=== PATIENT | female | born 1940 | race Caucasian/White ===

== ENCOUNTER 2020-05-11 19:19 | Inpatient (IN) | payer OTHER ==
[~2020-05-11] VITALS: Ht 152.4 cm; Wt 4.5 kg
[2020-05-11] MEDS ORDERED: CLONAZEPAM0.5 MG (20:06)
[2020-05-11] MEDS ORDERED: JANUMET 50-5001 EACH (20:06)
[2020-05-11] MEDS ORDERED: GLIPIZIDE XL10 MG (20:07)
[2020-05-11] MEDS ORDERED: EXELON (20:07)
[2020-05-11] MEDS ORDERED: AVAPRO150 MG (20:08)
[2020-05-11] MEDS ORDERED: ZOLOFT50 MG (20:08)
[2020-05-11] MEDS ORDERED: NAMENDA10 MG (20:08)
[2020-05-11] MEDS ORDERED: SIMVASTATIN20 MG (20:09)
[2020-05-11] MEDS ORDERED: ACID REDUCER20 M1 (20:09)
--- NOTE | 2020-05-11 20:10 | NUR ---
PTE SE RECIBE POR ULCERA EN EL GLUTEO DERECHO Y AZUCAR ERIN REFIERE PARAMEDICO Y FAMILIAR.
--- NOTE | 2020-05-11 21:36 | NUR ---
PTE CON DX DE BETO,EN COMPANIA DE FAMILIAR A QUIEN SE LE ORIENTA SOBRE TX MEDICO EL CUAL REFIERE ENTENDER.SE LE EXTRAEN MUESTRAS BAJO MEDIDAS ASEPTICAS,CANALIZACION PATENTE Y DAY DE EDEMA EN MANO RT POR PARAMEDICOS,SE ADMINISTRAN MEDICAMENTOS JANINE ORDEN MEDICA.SE ORIENTA FAMILIAR SOBRE INSERCION DE BLISS Y REFIERE ENTENDER.
--- NOTE | 2020-05-12 08:33 | NUR ---
SE RECIBE PACIENTE ALERTA EN COMPANIA DE FAMILIAR, EN ALEX BARANDAS ELEVADAS VENOPUNCION PATENTE,DAY DE EDEMA Y ENROJECIMIENTO. SIGNOS VITALES TOMADOS, REPORTADOS ESTABLES AL MOMENTO. SE MANTIENE BAJO OBSERVACION POR CAMBIOS.
[2020-05-15] MEDS ORDERED: RIVASTIGMINE1.5 MG (10:48)
[2020-05-15] MEDS ORDERED: EMERGEN-C 1,01000 MG (10:49)
[2020-05-15] MEDS ORDERED: IBUPROFEN200 MG (10:49)
[2020-05-15] MEDS ORDERED: CALTRATE 600 +1 EACH (10:49)
[2020-05-15] MEDS ORDERED: ANTACID EXTRA300 MG (10:49)
[2020-05-23] MEDS ORDERED: MORGIDOX100 MG PO (12:51)
[2020-05-23] MEDS ORDERED: INTESTINEX680 M1 PO (12:52)
[2020-05-23] MEDS ORDERED: POLY119PG PO (12:58)
[2020-05-23] MEDS ORDERED: MUPIROCIN22 GM NASAL (12:59)
[2020-05-23] MEDS ORDERED: HIBICLENS118 ML TOP (13:00)
[2020-05-23] MEDS ORDERED: CLOTRIMAZOLE 321 GM VAG (13:42)
[2020-05-23] MEDS ORDERED: OMEPRAZOLE20 MG PO (13:44)
== END 2020-05-23 22:30 | disposition home or self-care (01) | DRG 593 ==
LOC: ER 19:19 → SEC-K 05-12 11:27 → MEDI 05-12 11:27 → SEC-K 05-12 14:12 → MEDI 05-12 14:32 → MEDJ 05-12 14:32 → MEDI 05-12 18:33
PROVIDERS: ADMIT Internal Medicine; ATTEND Internal Medicine
PROC: BW21ZZZ Computerized Tomography (CT Scan) of Abdomen and Pelvis (ICD-10-PCS; principal; 2020-05-12)
PROC: 8E0ZXY6 Isolation (ICD-10-PCS; 2020-05-12)
DX: L89.313 Pressure ulcer of right buttock, stage 3 (principal); L02.31 Cutaneous abscess of buttock; N39.0 Urinary tract infection, site not specified; M86.8X8 Other osteomyelitis, other site; F02.81 Dementia in other diseases classified elsewhere, unspecified severity, with behavioral disturbance; Z74.01 Bed confinement status; B96.89 Other specified bacterial agents as the cause of diseases classified elsewhere; B95.2 Enterococcus as the cause of diseases classified elsewhere; B96.4 Proteus (mirabilis) (morganii) as the cause of diseases classified elsewhere; B95.62 Methicillin resistant Staphylococcus aureus infection as the cause of diseases classified elsewhere; B96.29 Other Escherichia coli [E. coli] as the cause of diseases classified elsewhere; Z20.828 Contact with and (suspected) exposure to other viral communicable diseases; G30.8 Other Alzheimer's disease

== ENCOUNTER 2020-12-20 18:44 | Inpatient (IN) | payer OTHER ==
[~2020-12-20] VITALS: Ht 149.9 cm; Wt 59.0 kg
[~2020-12-20 18:44] MED LIST: ACID REDUCER20 M1; ANTACID EXTRA300 MG; AVAPRO150 MG; CALTRATE 600 +1 EACH; CLONAZEPAM0.5 MG; CLOTRIMAZOLE 321 GM VAG; EMERGEN-C 1,01000 MG; EXELON; GLIPIZIDE XL10 MG; HIBICLENS118 ML TOP; IBUPROFEN200 MG; INTESTINEX680 M1 PO; JANUMET 50-5001 EACH; MORGIDOX100 MG PO; MUPIROCIN22 GM NASAL; NAMENDA10 MG; OMEPRAZOLE20 MG PO; POLY119PG PO; RIVASTIGMINE1.5 MG; SIMVASTATIN20 MG; ZOLOFT50 MG
--- NOTE | 2020-12-20 19:03 | NUR ---
SE RECIBE PTE ALERTA QUE RESPONDE SOLO A ESTIMULOS DE DOLOR,PTE CON ALZHEIMER. PTE ACOMPANADA DE M[place]AU[place] HIJA LA MISMA REFIERE QUE LA PTE PRESENTA ULCERA SACRAL Y RAMOS ISATU DE COMER DESDE HACEN 2 BARRON.
--- NOTE | 2020-12-20 20:46 | NUR ---
TX. OFRECIDO POR MIS. CERVANTES QUIEN ORIENTA AL PACIENTE SOBRE EL TX. EXTRAE MUESTRAS DE GEGE BAJO MEDIDAS ASEPTICAS SE CANALIZA ADMINISTRA MEDICAMENTOS JANINE ORDEN MEDICA.
--- NOTE | 2020-12-20 23:15 | NUR ---
PTE ESTABLE ACOMPANADA SE FAMILIAR SE EDUCA FAMILIAR SOBRE EL SEGUIMIENTO QUE SE LE REALIZARA EN EL HOSPITAL Y ESTA REFIERE ENTENDER.PTE CON RUTHY.
== END 2021-01-02 18:07 | disposition home health service (06) | DRG 571 ==
LOC: ER 18:44 → SEC-K 12-21 07:01 → MEDJ 12-21 07:01
PROVIDERS: Surgery; ADMIT Internal Medicine; ATTEND Internal Medicine
PROC: 02HV33Z Insertion of Infusion Device into Superior Vena Cava, Percutaneous Approach (ICD-10-PCS; 2020-12-23)
PROC: 0JB70ZZ Excision of Back Subcutaneous Tissue and Fascia, Open Approach (ICD-10-PCS; principal; 2020-12-25 07:00)
PROC: 0DH63UZ Insertion of Feeding Device into Stomach, Percutaneous Approach (ICD-10-PCS; 2020-12-29)
DX: L89.154 Pressure ulcer of sacral region, stage 4 (principal); N17.8 Other acute kidney failure; N39.0 Urinary tract infection, site not specified; E87.0 Hyperosmolality and hypernatremia; E46 Unspecified protein-calorie malnutrition; I10 Essential (primary) hypertension; G30.9 Alzheimer's disease, unspecified; F02.80 Dementia in other diseases classified elsewhere, unspecified severity, without behavioral disturbance, psychotic disturbance, mood disturbance, and anxiety; Z74.01 Bed confinement status; E11.65 Type 2 diabetes mellitus with hyperglycemia; E86.0 Dehydration; D64.9 Anemia, unspecified; B95.62 Methicillin resistant Staphylococcus aureus infection as the cause of diseases classified elsewhere; Z20.822 Contact with and (suspected) exposure to COVID-19; R13.19 Other dysphagia

== ENCOUNTER 2021-01-04 12:19 | Emergency (ER) | payer OTHER ==
[~2021-01-04] VITALS: Ht 152.4 cm; Wt 54.4 kg
[2021-01-04] MEDS ORDERED: PROTONIX40 MG PO (12:47)
[2021-01-04] MEDS ORDERED: HUMALOG100 UNIT/2 SQ (12:47)
== END 2021-01-04 21:32 | disposition home or self-care (01) ==
LOC: ER 12:19
DX: R06.02 Shortness of breath (principal); G30.8 Other Alzheimer's disease; F02.80 Dementia in other diseases classified elsewhere, unspecified severity, without behavioral disturbance, psychotic disturbance, mood disturbance, and anxiety; Z74.01 Bed confinement status; Z93.1 Gastrostomy status

== ENCOUNTER 2021-04-02 21:50 | Inpatient (IN) | payer OTHER ==
[~2021-04-02] VITALS: Ht 154.9 cm; Wt 56.7 kg
[~2021-04-02 21:50] MED LIST changes: +HUMALOG100 UNIT/2 SQ; +PROTONIX40 MG PO
[2021-04-04] MEDS ORDERED: SEMGLEE100 UNIT/1 (11:34)
[2021-04-04] MEDS ORDERED: METFORMIN HCL1000 M3 (11:34)
[2021-04-04] MEDS ORDERED: LEVOFLOXACIN750 MG (11:34)
[2021-04-04] MEDS ORDERED: FAMOTIDINE20 MG (11:34)
== END 2021-04-14 11:44 | disposition home or self-care (01) | DRG 853 ==
LOC: ER 21:50 → MEDI 04-03 11:58 → SEC-K 04-03 11:58 → MEDJ 04-04 01:15 → MEDI 04-04 06:42
PROVIDERS: ADMIT Internal Medicine; ATTEND Internal Medicine
PROC: 4A033R1 Measurement of Arterial Saturation, Peripheral, Percutaneous Approach (ICD-10-PCS; 2021-04-03)
PROC: 8E0ZXY6 Isolation (ICD-10-PCS; 2021-04-03)
PROC: 30233N1 Transfusion of Nonautologous Red Blood Cells into Peripheral Vein, Percutaneous Approach (ICD-10-PCS; 2021-04-03)
PROC: 0JB70ZZ Excision of Back Subcutaneous Tissue and Fascia, Open Approach (ICD-10-PCS; principal; 2021-04-06)
PROC: 02HV33Z Insertion of Infusion Device into Superior Vena Cava, Percutaneous Approach (ICD-10-PCS; 2021-04-11)
DX: A41.9 Sepsis, unspecified organism (principal); L89.154 Pressure ulcer of sacral region, stage 4; R65.21 Severe sepsis with septic shock; E46 Unspecified protein-calorie malnutrition; B37.49 Other urogenital candidiasis; E87.0 Hyperosmolality and hypernatremia; D64.9 Anemia, unspecified; Z74.01 Bed confinement status; G30.8 Other Alzheimer's disease; F02.80 Dementia in other diseases classified elsewhere, unspecified severity, without behavioral disturbance, psychotic disturbance, mood disturbance, and anxiety; I10 Essential (primary) hypertension; Z66 Do not resuscitate; Z20.822 Contact with and (suspected) exposure to COVID-19; Z93.1 Gastrostomy status; E88.09 Other disorders of plasma-protein metabolism, not elsewhere classified; Z79.4 Long term (current) use of insulin; B96.29 Other Escherichia coli [E. coli] as the cause of diseases classified elsewhere; E11.65 Type 2 diabetes mellitus with hyperglycemia

== ENCOUNTER 2021-12-14 08:56 | Emergency (ER) | payer OTHER ==
[~2021-12-14] VITALS: Ht 152.4 cm; Wt 45.4 kg
[~2021-12-14 08:56] MED LIST changes: +FAMOTIDINE20 MG; +LEVOFLOXACIN750 MG; +METFORMIN HCL1000 M3; +SEMGLEE100 UNIT/1
== END 2021-12-14 12:52 | disposition home or self-care (01) ==
LOC: ER 08:56
DX: K94.23 Gastrostomy malfunction (principal); G30.9 Alzheimer's disease, unspecified; F02.80 Dementia in other diseases classified elsewhere, unspecified severity, without behavioral disturbance, psychotic disturbance, mood disturbance, and anxiety; E11.9 Type 2 diabetes mellitus without complications; Z79.4 Long term (current) use of insulin; I10 Essential (primary) hypertension